=== PATIENT | male | born 1995 | race African-American/Black ===

== ENCOUNTER 2024-02-05 23:43 | Emergency (ER) | payer MEDICAID, OTHER ==
[~2024-02-05] VITALS: Ht 165.1 cm; Wt 68.9 kg
[2024-02-06] MEDS ORDERED: PANTOPRAZOLE SODIUM 40 MG TABLET.DR PO ONE (00:04)
[2024-02-06] MEDS ORDERED: ONDANSETRON HCL 4 MG/5 ML UDC ORAL SOL ONE (00:04)
[2024-02-06] MEDS ORDERED: DICYCLOMINE HCL 20 MG TABLET ONE (00:05)
[2024-02-06] MEDS: ONDANSETRON HCL 4 MG/5 ML UDC ORAL SOL PO ONE (00:14)
[2024-02-06] MEDS: PANTOPRAZOLE SODIUM 40 MG TABLET.DR PO ONE (00:14)
[2024-02-06] MEDS: DICYCLOMINE HCL 10 MG CAPSULE PO STA (00:14)
[2024-02-06 00:20] LABS: EOSINOPHILS # (AUTO) 0.5 K/uL (0.0-0.7); HEMATOCRIT 41.1 % (36.7-47.1); HEMOGLOBIN 13.8 g/dL (12.5-16.3); LYMPHOCYTES # (AUTO) 0.4 K/uL (0.8-4.8); LYMPHOCYTES % (AUTO) 4.3 % (20.5-51.5); MEAN CORPUSCULAR HEMOGLOBIN 28.2 uug (23.8-33.4); MEAN CORPUSCULAR HGB CONC 34 g/dL (32.5-36.3); MEAN CORPUSCULAR VOLUME 83.9 fL (73.0-96.2); MONOCYTES # (AUTO) 0.2 K/uL (0.1-1.30); MONOCYTES % (AUTO) 2.1 % (0.0-11.0); NEUTROPHILS # (AUTO) 8.2 K/uL (1.8-8.9); NEUTROPHILS % (AUTO) 88.6 % (38.5-71.5); PLATELET COUNT (AUTO) 221 K/uL (152-348); RED BLOOD CELL COUNT(AUTO) 4.89 MIL/uL (4.06-5.63); RED CELL DISTRIBUTION WIDTH 13.1 % (12.1-16.2); WHITE BLOOD COUNT (AUTO) 9.2 K/uL (3.6-10.2)
[2024-02-06 00:40] LABS: ALANINE AMINOTRANSFERASE 55 U/L (16-63); ALBUMIN 4.6 g/dL (3.4-5.0); ALKALINE PHOSPHATASE 104 U/L (50-136); ASPARTATE AMINOTRANSFERASE 26 U/L (15-37); BILIRUBIN,TOTAL 0.3 mg/dL (0.2-1.0); CALCIUM 9.5 mg/dL (8.5-10.1); CARBON DIOXIDE 27 mmol/L (21-32); CHLORIDE 101 mmol/L (98-107); CREATININE 1.1 mg/dL (0.6-1.3); GLUCOSE 142 mg/dL (74-106); POTASSIUM 4.1 mmol/L (3.5-5.1); SODIUM SERUM 139 mmol/L (136-145); TOTAL PROTEIN, SERUM 8.9 g/dL (6.4-8.2); UREA NITROGEN, BLOOD 12 mg/dL (7-18)
[2024-02-06] MEDS ORDERED: ONDA4TAB5 PO (00:44)
[2024-02-06] MEDS ORDERED: DICY10CA13 PO (00:44)
[2024-02-06] MEDS ORDERED: PANT40TA2 PO (00:44)
[2024-02-06 00:54] LABS: C-REACTIVE PROTEIN < 0.10 mg/dL (0.00-0.30)
[2024-02-06 01:04] LABS: LACTIC ACID 2.4 mmol/L (0.4-2.0)
[2024-02-06 01:09] VITALS: BP 140/99; TEMP 98.6; O2SAT 98
== END 2024-02-06 01:09 | disposition home or self-care (01) ==
LOC: ER 23:54
DX: K62.5 Hemorrhage of anus and rectum (principal); R10.84 Generalized abdominal pain; R11.2 Nausea with vomiting, unspecified; J45.909 Unspecified asthma, uncomplicated; Z79.899 Other long term (current) drug therapy
CPT/HCPCS: 36415; 83605; 83690; 83735; 85025; 85610; 86140; A4606; A4663; Q0162